=== PATIENT | female | born 1960 | race Caucasian/White ===

== ENCOUNTER 2021-12-28 20:40 | Inpatient (IN) ==
[2021-12-28] MEDS ORDERED: SODIUM CHLORIDE 0.9% 1,000 ML IV STA (21:09)
[2021-12-28] MEDS ORDERED: PIPERACILLIN/TAZOBACTAM 3,375 MG in SODIUM CHLORIDE 0.9% 100 ML IV STA ×2 (21:09→21:25)
[2021-12-28 21:51] LABS: Basophils # 0.1 10*3/uL (0.0-0.2); Basophils % 0.3 % (0.0-0.8); Hematocrit 31.2 VOL% (35.7-47.0); Hemoglobin 9.8 GM/DL (12.0-16.0); Immature Granulocytes % 7.9 %; Immature Granulocytes Absolute 1.47 #; Lymphocytes # 0.8 10*3/uL (1.4-4.0); Mean Corpuscular HGB Conc 31.4 GM/DL (32-36); Mean Corpuscular Volume 89.1 FL (87-102); Mean Platelet Volume 9.9 FL (9.6-12.0); Monocytes # 0.5 10*3/uL (0.11-0.8); Monocytes % 2.8 % (1.7-12.7); Platelet Count 329 T/CUMM (130-400); Red Cell Distribution Width 17.3 % (9.3-17.3); White Blood Count 18.7 T/CUMM (4-12)
[2021-12-28 22:11] LABS: Alanine Aminotransferase 11 U/L (13-56); Albumin 1.9 G/DL (3.4-5.0); Alkaline Phosphatase 83 U/L (45-117); Aspartate Amino Transferase 14 U/L (0-37); Bilirubin,Total < 0.39 MG/DL (0.20-1.00); Blood Urea Nitrogen 24 MG/DL (7-18); Calcium 8.7 MG/DL (8.5-10.1); Carbon Dioxide 23 MMOL/L (21-32); Chloride 113 MMOL/L (98-107); Glucose 87 MG/DL (74-106); Osmolality,Calculated 288.8 MOS/KG (273-304); Potassium 3.2 MMOL/L (3.5-5.1); Sodium 144 MMOL/L (136-145); Total Protein 6.9 G/DL (6.4-8.2)
[2021-12-28 22:12] LABS: Band Neutrophils 2 % (0-10); Lymphocytes 5 % (20-55); Platelet Estimate Adequate; Total Cells Counted 100
[2021-12-28] MEDS ORDERED: ACETAMINOPHEN 325 MG TABLET PO PRN (22:31)
[2021-12-28] MEDS ORDERED: tiZANidine 4 MG TABLET PO PRN (22:31)
[2021-12-28] MEDS ORDERED: HYDROmorphone 1 MG/1 ML SYRINGE IV PRN (22:31)
[2021-12-28] MEDS ORDERED: CYCLOBENZAPRINE 10 MG TABLET PO PRN (23:15)
[2021-12-29] MEDS: LACTATED RINGERS 1,000 ML IV SCH ×4 (03:13→16:02)
[2021-12-29 05:07] LABS: Basophils % 0.1 % (0.0-0.8); Eosinophils % 0.1 % (0.00-10.9); Hematocrit 27.8 VOL% (35.7-47.0); Hemoglobin 8.5 GM/DL (12.0-16.0); Immature Granulocytes % 5.7 %; Immature Granulocytes Absolute 0.89 #; Lymphocytes # 0.9 10*3/uL (1.4-4.0); Lymphocytes % 5.9 % (21.3-54.2); Mean Corpuscular HGB Conc 30.6 GM/DL (32-36); Mean Corpuscular Volume 90.6 FL (87-102); Monocytes # 0.8 10*3/uL (0.11-0.8); Monocytes % 5.2 % (1.7-12.7); Platelet Count 306 T/CUMM (130-400); Red Blood Count 3.07 MC/CUMM (3.8-5.5); Red Cell Distribution Width 17.5 % (9.3-17.3); White Blood Count 15.5 T/CUMM (4-12)
[2021-12-29 05:25] LABS: Calcium 8.8 MG/DL (8.5-10.1); Osmolality,Calculated 292.6 MOS/KG (273-304); Potassium 2.7 MMOL/L (3.5-5.1)
[2021-12-29 06:02] LABS: Band Neutrophils 8 % (0-10); Hypochromia Slight; Lymphocytes 2 % (20-55); Metamyelocytes 1 %; Microcytosis 1+; Ovalocytes Slight; Tear Drop Cells Slight; Total Cells Counted 100
[2021-12-29 06:03] LABS: Platelet Estimate Normal
[2021-12-29] MEDS: PIPERACILLIN/TAZOBACTAM 3,375 MG in SODIUM CHLORIDE 0.9% 100 ML IV SCH ×3 (06:43→21:07)
[2021-12-29] MEDS: VENLAFAXINE XR 75 MG CAPSULE PO SCH (08:50)
[2021-12-29] MEDS: POTASSIUM CHLORIDE RIDER 10 MEQ/100 ML PREMIX IV PRN ×5 (08:51→13:36)
[2021-12-29] MEDS: GABAPENTIN 400 MG CAPSULE PO SCH ×3 (08:51→20:41)
[2021-12-29] MEDS: PANTOPRAZOLE 40 MG TABLET PO SCH (08:51)
[2021-12-29] MEDS: ASPIRIN EC 81 MG TABLET PO SCH (08:51)
[2021-12-29] MEDS: BACLOFEN 10 MG TABLET PO SCH ×3 (08:51→20:41)
[2021-12-29] MEDS ORDERED: PANTOPRAZOLE 40 MG TABLET PO SCH (09:00)
[2021-12-29] MEDS ORDERED: MAGNESIUM SULF RIDER 2 GM/50 ML PREMIX IV PRN (09:21)
[2021-12-29] MEDS ORDERED: MAGNESIUM SULF RIDER 4 GM/100 ML PREMIX IV PRN (09:21)
[2021-12-29] MEDS: LIDOCAINE 5% TOP SCH (09:54)
[2021-12-29] MEDS: POTASSIUM CHLORIDE 20 MEQ TABLET PO SCH (09:54)
[2021-12-29] MEDS: ONDANSETRON 4 MG/2 ML VIAL IV PRN (09:57)
[2021-12-29] MEDS: PROMETHAZINE 25 MG/1 ML VIAL IM PRN (12:00)
[2021-12-29] MEDS: ENOXAPARIN 40 MG/0.4 ML SYRINGE SUBCUT SCH (15:09)
[2021-12-29 16:32] LABS: Calcium 8.7 MG/DL (8.5-10.1); Osmolality,Calculated 290.7 MOS/KG (273-304); Potassium 3.7 MMOL/L (3.5-5.1)
[2021-12-30] MEDS: LACTATED RINGERS 1,000 ML IV SCH ×2 (04:14→09:04)
[2021-12-30 05:04] LABS: Basophils % 0.2 % (0.0-0.8); Eosinophils % 0.2 % (0.00-10.9); Hematocrit 26.5 VOL% (35.7-47.0); Hemoglobin 8.3 GM/DL (12.0-16.0); Immature Granulocytes % 0.7 %; Immature Granulocytes Absolute 0.13 #; Lymphocytes # 1.3 10*3/uL (1.4-4.0); Lymphocytes % 6.6 % (21.3-54.2); Mean Corpuscular HGB Conc 31.3 GM/DL (32-36); Mean Corpuscular Volume 88.9 FL (87-102); Monocytes # 0.7 10*3/uL (0.11-0.8); Monocytes % 3.7 % (1.7-12.7); Neutrophils % 88.6 % (38.7-73.9); Platelet Count 312 T/CUMM (130-400); Red Blood Count 2.98 MC/CUMM (3.8-5.5); Red Cell Distribution Width 17.7 % (9.3-17.3); White Blood Count 19.8 T/CUMM (4-12)
[2021-12-30 05:25] LABS: Calcium 9.3 MG/DL (8.5-10.1); Osmolality,Calculated 289.7 MOS/KG (273-304); Potassium 3.4 MMOL/L (3.5-5.1)
[2021-12-30 05:31] LABS: Hypochromia Slight; Lymphocytes 4 % (20-55); Microcytosis Slight; Platelet Estimate Adequate; Total Cells Counted 100
[2021-12-30] MEDS: PIPERACILLIN/TAZOBACTAM 3,375 MG in SODIUM CHLORIDE 0.9% 100 ML IV SCH ×3 (06:26→21:30)
[2021-12-30] MEDS: VENLAFAXINE XR 75 MG CAPSULE PO SCH (09:06)
[2021-12-30] MEDS: GABAPENTIN 400 MG CAPSULE PO SCH ×3 (09:07→20:29)
[2021-12-30] MEDS: ASPIRIN EC 81 MG TABLET PO SCH (09:07)
[2021-12-30] MEDS: ONDANSETRON 4 MG/2 ML VIAL IV PRN (09:07)
[2021-12-30] MEDS: PANTOPRAZOLE 40 MG TABLET PO SCH (09:07)
[2021-12-30] MEDS: BACLOFEN 10 MG TABLET PO SCH ×3 (09:07→20:28)
[2021-12-30] MEDS: POTASSIUM CHLORIDE 20 MEQ TABLET PO SCH (09:07)
[2021-12-30] MEDS: LIDOCAINE 5% TOP SCH (10:25)
[2021-12-30] MEDS: ENOXAPARIN 40 MG/0.4 ML SYRINGE SUBCUT SCH (17:09)
[2021-12-31 05:16] LABS: Basophils % 0.2 % (0.0-0.8); Eosinophils # 0.1 10*3/uL (0.0-0.87); Eosinophils % 0.7 % (0.00-10.9); Hematocrit 26.4 VOL% (35.7-47.0); Hemoglobin 8.2 GM/DL (12.0-16.0); Immature Granulocytes % 0.7 %; Immature Granulocytes Absolute 0.12 #; Lymphocytes # 1.6 10*3/uL (1.4-4.0); Mean Corpuscular HGB Conc 31.1 GM/DL (32-36); Mean Corpuscular Volume 90.1 FL (87-102); Mean Platelet Volume 10.1 FL (9.6-12.0); Monocytes # 0.9 10*3/uL (0.11-0.8); Monocytes % 5.3 % (1.7-12.7); Neutrophils % 83.1 % (38.7-73.9); Platelet Count 278 T/CUMM (130-400); Red Blood Count 2.93 MC/CUMM (3.8-5.5); Red Cell Distribution Width 17.8 % (9.3-17.3); White Blood Count 16.2 T/CUMM (4-12)
[2021-12-31 05:32] LABS: Calcium 9.2 MG/DL (8.5-10.1); Osmolality,Calculated 283.1 MOS/KG (273-304)
[2021-12-31] MEDS: PIPERACILLIN/TAZOBACTAM 3,375 MG in SODIUM CHLORIDE 0.9% 100 ML IV SCH (05:32)
[2021-12-31 05:51] LABS: Band Neutrophils 1 % (0-10); Hypochromia Slight; Lymphocytes 8 % (20-55); Platelet Estimate Adequate; Total Cells Counted 100
[2021-12-31] MEDS: PANTOPRAZOLE 40 MG TABLET PO SCH (08:44)
[2021-12-31] MEDS: BACLOFEN 10 MG TABLET PO SCH ×3 (08:44→21:04)
[2021-12-31] MEDS: ASPIRIN EC 81 MG TABLET PO SCH (08:44)
[2021-12-31] MEDS: CEFUROXIME 500 MG TABLET PO SCH ×2 (08:44→16:56)
[2021-12-31] MEDS: GABAPENTIN 400 MG CAPSULE PO SCH ×3 (08:44→21:04)
[2021-12-31] MEDS: VENLAFAXINE XR 75 MG CAPSULE PO SCH (08:44)
[2021-12-31] MEDS: POTASSIUM CHLORIDE 20 MEQ TABLET PO SCH (08:55)
[2021-12-31] MEDS: LIDOCAINE 5% TOP SCH (09:43)
[2021-12-31] MEDS: ENOXAPARIN 40 MG/0.4 ML SYRINGE SUBCUT SCH (16:04)
[2022-01-01] MEDS: BACLOFEN 10 MG TABLET PO SCH ×3 (08:24→20:38)
[2022-01-01] MEDS: CEFUROXIME 500 MG TABLET PO SCH (08:24)
[2022-01-01] MEDS: ASPIRIN EC 81 MG TABLET PO SCH (08:24)
[2022-01-01] MEDS: POTASSIUM CHLORIDE 20 MEQ TABLET PO SCH (08:25)
[2022-01-01] MEDS: VENLAFAXINE XR 75 MG CAPSULE PO SCH (08:25)
[2022-01-01] MEDS: GABAPENTIN 400 MG CAPSULE PO SCH ×3 (08:26→20:39)
[2022-01-01] MEDS: PANTOPRAZOLE 40 MG TABLET PO SCH (08:26)
[2022-01-01] MEDS: PROMETHAZINE 25 MG/1 ML VIAL IM PRN (08:38)
[2022-01-01] MEDS ORDERED: ESTRADIOL 0.01% VAG CREAM 42.5 GM TUBE VAG SCH (09:00)
[2022-01-01] MEDS: LIDOCAINE 5% TOP SCH (09:01)
[2022-01-01 10:54] LABS: Basophils # 0.1 10*3/uL (0.0-0.2); Basophils % 0.2 % (0.0-0.8); Eosinophils # 0.1 10*3/uL (0.0-0.87); Eosinophils % 0.3 % (0.00-10.9); Hematocrit 32.4 VOL% (35.7-47.0); Immature Granulocytes % 1.2 %; Immature Granulocytes Absolute 0.26 #; Lymphocytes # 1.6 10*3/uL (1.4-4.0); Lymphocytes % 7.5 % (21.3-54.2); Mean Corpuscular HGB Conc 31.5 GM/DL (32-36); Mean Corpuscular Volume 87.6 FL (87-102); Mean Platelet Volume 10.3 FL (9.6-12.0); Monocytes # 1.3 10*3/uL (0.11-0.8); Neutrophils % 84.8 % (38.7-73.9); Red Cell Distribution Width 17.6 % (9.3-17.3)
[2022-01-01 10:59] LABS: Hemoglobin 10.2 GM/DL (12.0-16.0); Platelet Count 428 T/CUMM (130-400); White Blood Count 21.1 T/CUMM (4-12)
[2022-01-01 11:06] LABS: Calcium 8.7 MG/DL (8.5-10.1); Osmolality,Calculated 270.8 MOS/KG (273-304); Potassium 4.1 MMOL/L (3.5-5.1)
[2022-01-01 11:14] LABS: Lymphocytes 6 % (20-55); Total Cells Counted 100
[2022-01-01 11:15] LABS: Microcytosis Slight
[2022-01-01] MEDS: ERTAPENEM 1,000 MG in SODIUM CHLORIDE 0.9% 100 ML IV SCH (13:30)
[2022-01-01] MEDS: ENOXAPARIN 40 MG/0.4 ML SYRINGE SUBCUT SCH (15:26)
[2022-01-01] MEDS: ONDANSETRON 4 MG/2 ML VIAL IV PRN (17:31)
[2022-01-02 07:53] LABS: Basophils # 0.1 10*3/uL (0.0-0.2); Basophils % 0.3 % (0.0-0.8); Eosinophils # 0.1 10*3/uL (0.0-0.87); Eosinophils % 0.5 % (0.00-10.9); Hematocrit 29.7 VOL% (35.7-47.0); Hemoglobin 9.5 GM/DL (12.0-16.0); Immature Granulocytes % 1.5 %; Immature Granulocytes Absolute 0.26 #; Lymphocytes # 1.7 10*3/uL (1.4-4.0); Lymphocytes % 9.8 % (21.3-54.2); Mean Corpuscular Volume 87.4 FL (87-102); Mean Platelet Volume 9.8 FL (9.6-12.0); Monocytes # 1.3 10*3/uL (0.11-0.8); Monocytes % 7.3 % (1.7-12.7); Neutrophils % 80.6 % (38.7-73.9); Platelet Count 405 T/CUMM (130-400); Red Cell Distribution Width 17.3 % (9.3-17.3); White Blood Count 17.5 T/CUMM (4-12)
[2022-01-02 08:09] LABS: Calcium 8.8 MG/DL (8.5-10.1); Osmolality,Calculated 266.1 MOS/KG (273-304); Potassium 4.2 MMOL/L (3.5-5.1)
[2022-01-02] MEDS: PANTOPRAZOLE 40 MG TABLET PO SCH (08:18)
[2022-01-02] MEDS: GABAPENTIN 400 MG CAPSULE PO SCH ×3 (08:18→21:19)
[2022-01-02] MEDS: POTASSIUM CHLORIDE 20 MEQ TABLET PO SCH (08:19)
[2022-01-02] MEDS: VENLAFAXINE XR 75 MG CAPSULE PO SCH (08:19)
[2022-01-02] MEDS: ASPIRIN EC 81 MG TABLET PO SCH (08:19)
[2022-01-02] MEDS: BACLOFEN 10 MG TABLET PO SCH ×3 (08:19→21:19)
[2022-01-02] MEDS: LIDOCAINE 5% TOP SCH (09:17)
[2022-01-02] MEDS: DEXT 5% NACL 0.45% KCL 40 MEQ 40 MEQ/1,000 ML BAG IV SCH ×2 (11:10→21:26)
[2022-01-02] MEDS: ERTAPENEM 1,000 MG in SODIUM CHLORIDE 0.9% 100 ML IV SCH (12:11)
[2022-01-02] MEDS: ENOXAPARIN 40 MG/0.4 ML SYRINGE SUBCUT SCH (15:32)
[2022-01-02] MEDS: ONDANSETRON 4 MG/2 ML VIAL IV PRN (16:31)
[2022-01-03 06:55] LABS: Basophils # 0.1 10*3/uL (0.0-0.2); Basophils % 0.3 % (0.0-0.8); Eosinophils # 0.2 10*3/uL (0.0-0.87); Eosinophils % 1.2 % (0.00-10.9); Hematocrit 29.4 VOL% (35.7-47.0); Hemoglobin 9.3 GM/DL (12.0-16.0); Immature Granulocytes % 1.2 %; Immature Granulocytes Absolute 0.18 #; Lymphocytes # 1.7 10*3/uL (1.4-4.0); Lymphocytes % 11.3 % (21.3-54.2); Mean Corpuscular HGB Conc 31.6 GM/DL (32-36); Mean Platelet Volume 10.4 FL (9.6-12.0); Monocytes # 1.1 10*3/uL (0.11-0.8); Monocytes % 7.4 % (1.7-12.7); Neutrophils % 78.6 % (38.7-73.9); Platelet Count 459 T/CUMM (130-400); Red Blood Count 3.34 MC/CUMM (3.8-5.5); Red Cell Distribution Width 17.5 % (9.3-17.3); White Blood Count 14.6 T/CUMM (4-12)
[2022-01-03 07:14] LABS: Calcium 8.9 MG/DL (8.5-10.1); Potassium 4.3 MMOL/L (3.5-5.1)
[2022-01-03] MEDS: DEXT 5% NACL 0.45% KCL 40 MEQ 40 MEQ/1,000 ML BAG IV SCH ×2 (07:39→15:04)
[2022-01-03] MEDS: BACLOFEN 10 MG TABLET PO SCH ×3 (08:42→20:38)
[2022-01-03] MEDS: POTASSIUM CHLORIDE 20 MEQ TABLET PO SCH (08:42)
[2022-01-03] MEDS: VENLAFAXINE XR 75 MG CAPSULE PO SCH (08:42)
[2022-01-03] MEDS: GABAPENTIN 400 MG CAPSULE PO SCH ×3 (08:42→20:38)
[2022-01-03] MEDS: PANTOPRAZOLE 40 MG TABLET PO SCH (08:42)
[2022-01-03] MEDS: ASPIRIN EC 81 MG TABLET PO SCH (08:42)
[2022-01-03] MEDS: LIDOCAINE 5% TOP SCH (08:43)
[2022-01-03] MEDS: ONDANSETRON 4 MG/2 ML VIAL IV PRN ×2 (08:45→20:41)
[2022-01-03] MEDS: ERTAPENEM 1,000 MG in SODIUM CHLORIDE 0.9% 100 ML IV SCH (12:29)
[2022-01-03] MEDS: ENOXAPARIN 40 MG/0.4 ML SYRINGE SUBCUT SCH (15:04)
[2022-01-04] MEDS: DEXT 5% NACL 0.45% KCL 40 MEQ 40 MEQ/1,000 ML BAG IV SCH ×3 (04:55→23:24)
[2022-01-04] MEDS: GABAPENTIN 400 MG CAPSULE PO SCH ×3 (08:30→21:21)
[2022-01-04] MEDS: PANTOPRAZOLE 40 MG TABLET PO SCH (08:30)
[2022-01-04] MEDS: VENLAFAXINE XR 75 MG CAPSULE PO SCH (08:30)
[2022-01-04] MEDS: BACLOFEN 10 MG TABLET PO SCH ×3 (08:30→21:21)
[2022-01-04] MEDS: POTASSIUM CHLORIDE 20 MEQ TABLET PO SCH (08:31)
[2022-01-04] MEDS: LIDOCAINE 5% TOP SCH (08:31)
[2022-01-04] MEDS: ASPIRIN EC 81 MG TABLET PO SCH (08:31)
[2022-01-04 09:27] LABS: Basophils # 0.1 10*3/uL (0.0-0.2); Basophils % 0.4 % (0.0-0.8); Eosinophils # 0.2 10*3/uL (0.0-0.87); Eosinophils % 1.3 % (0.00-10.9); Hematocrit 33.3 VOL% (35.7-47.0); Hemoglobin 10.3 GM/DL (12.0-16.0); Immature Granulocytes % 1.3 %; Immature Granulocytes Absolute 0.17 #; Lymphocytes # 1.8 10*3/uL (1.4-4.0); Mean Corpuscular HGB Conc 30.9 GM/DL (32-36); Mean Corpuscular Volume 89.5 FL (87-102); Mean Platelet Volume 9.9 FL (9.6-12.0); Monocytes # 0.8 10*3/uL (0.11-0.8); Monocytes % 5.7 % (1.7-12.7); Neutrophils % 78.3 % (38.7-73.9); Platelet Count 508 T/CUMM (130-400); Red Blood Count 3.72 MC/CUMM (3.8-5.5); Red Cell Distribution Width 17.4 % (9.3-17.3); White Blood Count 13.6 T/CUMM (4-12)
[2022-01-04 10:05] LABS: Calcium 9.3 MG/DL (8.5-10.1); Osmolality,Calculated 273.5 MOS/KG (273-304); Potassium 4.5 MMOL/L (3.5-5.1)
[2022-01-04] MEDS: ERTAPENEM 1,000 MG in SODIUM CHLORIDE 0.9% 100 ML IV SCH (14:16)
[2022-01-04] MEDS: ENOXAPARIN 40 MG/0.4 ML SYRINGE SUBCUT SCH (15:45)
[2022-01-04] MEDS: ONDANSETRON 4 MG/2 ML VIAL IV PRN (18:22)
[2022-01-05 05:05] LABS: Basophils # 0.1 10*3/uL (0.0-0.2); Basophils % 0.6 % (0.0-0.8); Eosinophils # 0.3 10*3/uL (0.0-0.87); Eosinophils % 2.2 % (0.00-10.9); Hematocrit 27.8 VOL% (35.7-47.0); Hemoglobin 8.9 GM/DL (12.0-16.0); Immature Granulocytes % 1.1 %; Immature Granulocytes Absolute 0.15 #; Lymphocytes # 1.9 10*3/uL (1.4-4.0); Lymphocytes % 13.7 % (21.3-54.2); Mean Platelet Volume 9.8 FL (9.6-12.0); Monocytes # 1.1 10*3/uL (0.11-0.8); Monocytes % 8.2 % (1.7-12.7); Neutrophils % 74.2 % (38.7-73.9); Platelet Count 509 T/CUMM (130-400); Red Blood Count 3.16 MC/CUMM (3.8-5.5); Red Cell Distribution Width 16.9 % (9.3-17.3); White Blood Count 13.6 T/CUMM (4-12)
[2022-01-05 05:28] LABS: Calcium 8.9 MG/DL (8.5-10.1); Osmolality,Calculated 269.7 MOS/KG (273-304); Potassium 4.4 MMOL/L (3.5-5.1)
[2022-01-05 08:06] LABS: INR 1.1; PT Patient Result 12.2 SECS (10.1-12.1)
[2022-01-05] MEDS: GABAPENTIN 400 MG CAPSULE PO SCH ×3 (08:47→21:05)
[2022-01-05] MEDS: VENLAFAXINE XR 75 MG CAPSULE PO SCH (08:47)
[2022-01-05] MEDS: PANTOPRAZOLE 40 MG TABLET PO SCH (08:47)
[2022-01-05] MEDS: BACLOFEN 10 MG TABLET PO SCH ×3 (08:47→21:05)
[2022-01-05] MEDS: POTASSIUM CHLORIDE 20 MEQ TABLET PO SCH (08:47)
[2022-01-05] MEDS: ASPIRIN EC 81 MG TABLET PO SCH (08:48)
[2022-01-05] MEDS: LIDOCAINE 5% TOP SCH (09:30)
[2022-01-05] MEDS: DEXT 5% NACL 0.45% KCL 40 MEQ 40 MEQ/1,000 ML BAG IV SCH ×2 (10:25→23:10)
[2022-01-05] MEDS ORDERED: DIAZEPAM 5 MG TABLET PO ONE (10:55)
[2022-01-05] MEDS ORDERED: SODIUM CHLORIDE 0.45% 1,000 ML IV SCH (11:00)
[2022-01-05] MEDS ORDERED: MIDAZOLAM 2 MG/2 ML VIAL IV ONE (12:11)
[2022-01-05] MEDS: fentaNYL 100 MCG/2 ML VIAL IV ONE ×2 (13:30→13:33)
[2022-01-05] MEDS: ERTAPENEM 1,000 MG in SODIUM CHLORIDE 0.9% 100 ML IV SCH (14:14)
[2022-01-05] MEDS: ENOXAPARIN 40 MG/0.4 ML SYRINGE SUBCUT SCH (18:08)
[2022-01-06] MEDS: DEXT 5% NACL 0.45% KCL 40 MEQ 40 MEQ/1,000 ML BAG IV SCH (05:56)
[2022-01-06] MEDS: CEFUROXIME 500 MG TABLET PO SCH ×2 (08:45→16:20)
[2022-01-06] MEDS: GABAPENTIN 400 MG CAPSULE PO SCH ×3 (08:45→21:08)
[2022-01-06] MEDS: ASPIRIN EC 81 MG TABLET PO SCH (08:45)
[2022-01-06] MEDS: PANTOPRAZOLE 40 MG TABLET PO SCH (08:45)
[2022-01-06] MEDS: POTASSIUM CHLORIDE 20 MEQ TABLET PO SCH (08:45)
[2022-01-06] MEDS: BACLOFEN 10 MG TABLET PO SCH ×3 (08:45→21:08)
[2022-01-06] MEDS: VENLAFAXINE XR 75 MG CAPSULE PO SCH (08:45)
[2022-01-06 08:48] LABS: Basophils # 0.1 10*3/uL (0.0-0.2); Basophils % 0.7 % (0.0-0.8); Eosinophils # 0.2 10*3/uL (0.0-0.87); Eosinophils % 2.2 % (0.00-10.9); Hemoglobin 8.9 GM/DL (12.0-16.0); Immature Granulocytes % 0.7 %; Immature Granulocytes Absolute 0.07 #; Lymphocytes # 1.9 10*3/uL (1.4-4.0); Lymphocytes % 18.1 % (21.3-54.2); Mean Corpuscular HGB Conc 31.8 GM/DL (32-36); Mean Corpuscular Volume 87.8 FL (87-102); Mean Platelet Volume 9.8 FL (9.6-12.0); Monocytes % 9.2 % (1.7-12.7); Neutrophils % 69.1 % (38.7-73.9); Platelet Count 564 T/CUMM (130-400); Red Blood Count 3.19 MC/CUMM (3.8-5.5); Red Cell Distribution Width 16.9 % (9.3-17.3); White Blood Count 10.7 T/CUMM (4-12)
[2022-01-06] MEDS: LIDOCAINE 5% TOP SCH (13:13)
[2022-01-06] MEDS: ENOXAPARIN 40 MG/0.4 ML SYRINGE SUBCUT SCH (16:21)
[2022-01-07 05:10] LABS: Basophils # 0.1 10*3/uL (0.0-0.2); Basophils % 0.6 % (0.0-0.8); Eosinophils # 0.2 10*3/uL (0.0-0.87); Hematocrit 28.5 VOL% (35.7-47.0); Hemoglobin 8.9 GM/DL (12.0-16.0); Immature Granulocytes % 0.8 %; Immature Granulocytes Absolute 0.12 #; Lymphocytes # 2.4 10*3/uL (1.4-4.0); Lymphocytes % 16.8 % (21.3-54.2); Mean Corpuscular HGB Conc 31.2 GM/DL (32-36); Mean Corpuscular Volume 88.8 FL (87-102); Mean Platelet Volume 10.1 FL (9.6-12.0); Monocytes # 1.1 10*3/uL (0.11-0.8); Monocytes % 7.9 % (1.7-12.7); Neutrophils % 72.9 % (38.7-73.9); Platelet Count 617 T/CUMM (130-400); Red Blood Count 3.21 MC/CUMM (3.8-5.5); Red Cell Distribution Width 16.9 % (9.3-17.3); White Blood Count 14.5 T/CUMM (4-12)
[2022-01-07] MEDS: GABAPENTIN 400 MG CAPSULE PO SCH (09:19)
[2022-01-07] MEDS: ASPIRIN EC 81 MG TABLET PO SCH (09:19)
[2022-01-07] MEDS: BACLOFEN 10 MG TABLET PO SCH (09:19)
[2022-01-07] MEDS: POTASSIUM CHLORIDE 20 MEQ TABLET PO SCH (09:19)
[2022-01-07] MEDS: VENLAFAXINE XR 75 MG CAPSULE PO SCH (09:19)
[2022-01-07] MEDS: CEFUROXIME 500 MG TABLET PO SCH (09:19)
[2022-01-07] MEDS: PANTOPRAZOLE 40 MG TABLET PO SCH (09:19)
[2022-01-07] MEDS: LIDOCAINE 5% TOP SCH (10:24)
[2022-01-07 12:05] VITALS: BP 118/53
== END 2022-01-07 12:37 | disposition home health service (06) | DRG 391 ==
LOC: EDUNIT# → EDBD → N.ED 20:40 → N.EDINP 21:38 → N.3E 22:13
PROVIDERS: ADMIT Surgery; ATTEND Surgery